=== PATIENT | female | born 1980 | race Caucasian/White ===

== ENCOUNTER 2022-03-13 08:29 | Outpatient (CLI) | payer OTHER, SELFPAY ==
[2022-03-13 14:11] LABS: Cholesterol* 239 mg/dL (90-199)
[2022-03-13 14:12] LABS: HDL Cholesterol* 94 mg/dL (>=50); LDL Cholesterol Calculated 110 mg/dL (<100); Triglycerides* 176 mg/dL (40-149)
== END 2022-03-13 08:30 | disposition home or self-care (01) ==
LOC: LKVREF 08:30
PROVIDERS: PCP Emergency Medicine; Visit Provider Emergency Medicine
DX: E78.5 Hyperlipidemia, unspecified (principal)
CPT/HCPCS: 80061

== ENCOUNTER 2022-10-08 14:46 | Outpatient (CLI) | payer OTHER, SELFPAY ==
--- NOTE | 2022-10-08 15:00 | CRLHL7_ITS ---
For Patients: As a result of the Century Cures Act, medical imaging exams and procedure reports are released immediately into your electronic medical record. You may view this report before your referring provider. If you have questions, please contact your health care provider. BILATERAL SCREENING MAMMOGRAM WITH COMPUTER-AIDED DETECTION TECHNIQUE: CC and MLO views were obtained. These mammographic images have been obtained using full-field digital technique. These mammographic images were interpreted with the benefit of computer-aided detection. COMPARISON FILM: 08/06/2021. FINDINGS: The breasts are heterogeneously dense, which may obscure small masses IMPRESSION: There is no radiographic evidence for malignancy. ASSESSMENT: BI-RADS Category 1: Negative RECOMMENDATION: Routine screening mammogram in 1 year. A lay language report of this examination will be provided to the patient. Shoaib Bustos M.D. Diagnostic Radiologist [email or web address] CINDY/Dictated by: Shoaib Bustos MD @ 10/09/2022 11:40:00 AM (Electronically Signed)
== END 2022-10-08 14:47 | disposition home or self-care (01) ==
LOC: MAMMO 14:47
PROVIDERS: PCP Emergency Medicine; Visit Provider Physician Assistant
DX: Z12.31 Encounter for screening mammogram for malignant neoplasm of breast (principal); R92.2 Inconclusive mammogram
CPT/HCPCS: 77067

== ENCOUNTER 2023-04-23 08:32 | Outpatient (CLI) | payer BC, SELFPAY | END 2023-04-23 08:33 | disposition home or self-care (01) | LOC: NFLDREF 04-25 08:59 | PROVIDERS: PCP Emergency Medicine; Referring Provider Emergency Medicine; Visit Provider Emergency Medicine | DX: Z00.00 Encounter for general adult medical examination without abnormal findings (principal); E78.5 Hyperlipidemia, unspecified; D64.9 Anemia, unspecified; R73.01 Impaired fasting glucose; R73.03 Prediabetes; Z71.3 Dietary counseling and surveillance | CPT/HCPCS: 80048; 80061 ==

== ENCOUNTER 2023-04-29 15:35 | Outpatient (CLI) | payer BC, SELFPAY | END 2023-04-29 15:36 | disposition home or self-care (01) | PROVIDERS: PCP Emergency Medicine; Visit Provider Emergency Medicine | DX: Z00.00 Encounter for general adult medical examination without abnormal findings (principal); D64.9 Anemia, unspecified; E78.5 Hyperlipidemia, unspecified; R73.01 Impaired fasting glucose; Z71.3 Dietary counseling and surveillance | CPT/HCPCS: 82728; 84443 ==

== ENCOUNTER 2023-07-24 16:27 | Outpatient (CLI) | payer BC, SELFPAY | END 2023-07-24 16:28 | disposition home or self-care (01) | PROVIDERS: PCP Emergency Medicine; Visit Provider Emergency Medicine | DX: D50.9 Iron deficiency anemia, unspecified (principal); R03.0 Elevated blood-pressure reading, without diagnosis of hypertension; L29.9 Pruritus, unspecified; F32.A Depression, unspecified; R73.03 Prediabetes | CPT/HCPCS: 80076; 83516; 86364 ==

== ENCOUNTER 2023-08-18 07:23 | Outpatient (CLI) | payer BC, SELFPAY ==
--- NOTE | 2023-08-18 08:27 | W.ANESCHARGE ---
Anesthesia Charges Start Date/Time Anesthesia Start Date: 08/18/23 Anesthesia Start Time: 07:59 Stop Date/Time Anesthesia Stop Date: 08/18/23 Anesthesia Stop Time: 08:20
--- NOTE | 2023-08-18 09:20 | W.ANESCHARGE ---
Anesthesia Charges Start Date/Time Anesthesia Start Date: 08/18/23 Anesthesia Start Time: 07:59 Stop Date/Time Anesthesia Stop Date: 08/18/23 Anesthesia Stop Time: 08:20
== END 2023-08-18 07:24 | disposition home or self-care (01) ==
LOC: OP CLINIC 07:23
PROVIDERS: PCP Emergency Medicine; Visit Provider Internal Medicine
DX: D50.9 Iron deficiency anemia, unspecified (principal)
CPT/HCPCS: 00811; 00812; 45378; J2704

== ENCOUNTER 2023-11-05 08:10 | Outpatient (CLI) | payer BC, SELFPAY | END 2023-11-05 08:11 | disposition home or self-care (01) | PROVIDERS: PCP Emergency Medicine; Visit Provider Emergency Medicine | DX: R03.0 Elevated blood-pressure reading, without diagnosis of hypertension (principal); D50.9 Iron deficiency anemia, unspecified | CPT/HCPCS: 80053; 82728 ==

== ENCOUNTER 2023-11-26 15:04 | Outpatient (CLI) | payer BC, SELFPAY ==
--- NOTE | 2023-11-26 15:20 | MM_ITS ---
Patient: TINY CHANDLER Facility:?[facility] Patient ID:?[id number] Site Patient ID:?[id number]. Site :?[id number] Study:?XRay-Breast Bilateral 3D W/CAD-11/26/2023 3:40:40 PM Ordering Physician:?Pauline Reis Final Report: BILATERAL SCREENING MAMMOGRAM WITH COMPUTER-AIDED DETECTION AND TOMOSYNTHESIS TECHNIQUE: CC and MLO views were obtained. These mammographic images have been obtained using full-field digital technique. These mammographic images were interpreted with the benefit of computer-aided detection. Breast Tomosynthesis was used in this interpretation. COMPARISON FILM: 10/08/22, 08/06/21. FINDINGS: The breasts are heterogeneously dense, which may obscure small masses. IMPRESSION: There is no radiographic evidence for malignancy. ASSESSMENT: BI-RADS Category 1: Negative RECOMMENDATION: Routine screening mammogram in 1 year. A lay language report of this examination will be provided to the patient. Shoaib Bustos M.D. Diagnostic Radiologist [email or web address] DSM/sp R& Transcribed: 6:57 p.m. SP/Dictated by: Shoaib Bustos MD @ 11/27/2023 12:28:00 PM Signed by:?Shoaib Bustos MD @11/28/2023 11:26:47 AM (Electronic Signature)
== END 2023-11-26 15:05 | disposition home or self-care (01) ==
LOC: MAMMO 15:05
PROVIDERS: PCP Emergency Medicine; Visit Provider Emergency Medicine
DX: Z12.31 Encounter for screening mammogram for malignant neoplasm of breast (principal); R92.2 Inconclusive mammogram
CPT/HCPCS: 77063; 77067

== ENCOUNTER 2024-08-03 10:17 | Outpatient (CLI) | payer BC, SELFPAY | END 2024-08-03 10:18 | disposition home or self-care (01) | PROVIDERS: PCP Emergency Medicine; Visit Provider Emergency Medicine | DX: R21 Rash and other nonspecific skin eruption (principal) | CPT/HCPCS: 82533; 84443; 85610; 85613; 85730; 86038; 86039; 86140; 86146; 86147 ==

== ENCOUNTER 2024-10-13 08:48 | Outpatient (CLI) | payer BC, SELFPAY | END 2024-10-13 08:49 | disposition home or self-care (01) | LOC: LKVREF 08:49 | PROVIDERS: PCP Emergency Medicine; Visit Provider Emergency Medicine | DX: R79.89 Other specified abnormal findings of blood chemistry (principal); D64.9 Anemia, unspecified; R03.0 Elevated blood-pressure reading, without diagnosis of hypertension; R73.03 Prediabetes; R73.01 Impaired fasting glucose | CPT/HCPCS: 80048; 80061; 82607; 82728 ==

== ENCOUNTER 2024-11-30 18:48 | Outpatient (CLI) | payer BC, SELFPAY ==
--- NOTE | 2024-11-30 19:00 | CRLHL7_ITS ---
For Patients: As a result of the Century Cures Act, medical imaging exams and procedure reports are released immediately into your electronic medical record. You may view this report before your referring provider. If you have questions, please contact your health care provider. INDICATION: BILATERAL SCREENING MAMMOGRAM, ASYMPTOMATIC 44 F COMPARISON: 11/26/23, 10/08/22, 08/06/21 TECHNIQUE: CC and MLO views were obtained. These mammographic images have been obtained using full-field digital technique. These mammographic images were interpreted with the benefit of computer aided detection and tomosynthesis. BREAST COMPOSITION: The breasts are heterogeneously dense, which may obscure small masses. FINDINGS: No suspicious findings. ASSESSMENT: BI-RADS 1 Negative RECOMMENDATION: Annual screening mammogram. A lay language report of this examination will be provided to the patient. Dictated by: Shoaib Bustos MD @ 12/08/2024 09:55:55 (Electronically Signed)
== END 2024-11-30 18:49 | disposition home or self-care (01) ==
LOC: MAMMO 18:49
PROVIDERS: PCP Emergency Medicine; Visit Provider Emergency Medicine
DX: Z12.31 Encounter for screening mammogram for malignant neoplasm of breast (principal); R92.333 Mammographic heterogeneous density, bilateral breasts
CPT/HCPCS: 77063; 77067

== ENCOUNTER 2025-06-17 09:55 | Outpatient (CLI) | payer BC, SELFPAY | END 2025-06-17 09:56 | disposition home or self-care (01) | LOC: NFLDREF 09:56 | PROVIDERS: Visit Provider Physician Assistant | DX: R63.5 Abnormal weight gain (principal); Z68.33 Body mass index [BMI] 33.0-33.9, adult | CPT/HCPCS: 84443 ==